=== PATIENT | male | born 1965 | race Caucasian/White ===

== ENCOUNTER 2018-08-25 05:44 | Emergency (ER) | payer OTHER ==
[~2018-08-25] VITALS: Ht 180.3 cm; Wt 115.0 kg
[2018-08-25 05:46] VITALS: BP 136/89
[2018-08-25] MEDS ORDERED: LIDOCAINE-MPF 1%, 5ML INFIL ONE (06:00)
[2018-08-25] MEDS ORDERED: DIPH,PERTUSS(ACELL),TET VAC/PF 0.5 ML IM-VACC ONE ×2 (06:00→06:09)
[2018-08-25] MEDS ORDERED: LIDOCAINE-MPF 1%, 5ML ONE (06:08)
--- NOTE | 2018-08-25 06:16 | NUR ---
Given tdap per mar. Awaiting numbing for irrigation.
[2018-08-25] MEDS ORDERED: BACITRACIN ZINC OINT 500U/GM, 0.9 GM ONE (06:59)
--- NOTE | 2018-08-25 07:05 | NUR ---
BACITRACIN APPLIED TO L WRIST SUTURED WOUND. DSD APPLIED.
--- NOTE | 2018-08-25 07:19 | NUR ---
Patient/Caregiver given discharge instructions and they have confirmed that they understand the instructions. Patient ambulatory with steady gait.
== END 2018-08-25 07:20 | disposition home or self-care (01) ==
LOC: ED 07:04
DX: S61.512A Laceration without foreign body of left wrist, initial encounter (principal); I10 Essential (primary) hypertension; J45.909 Unspecified asthma, uncomplicated; W25.XXXA Contact with sharp glass, initial encounter; Y93.89 Activity, other specified; Y92.009 Unspecified place in unspecified non-institutional (private) residence as the place of occurrence of the external cause; Y99.8 Other external cause status
CPT/HCPCS: 12031; 90715; 99284